=== PATIENT | female | born 1970 | race American Indian/Alaskan Native ===

== ENCOUNTER 2018-10-12 10:28 | Inpatient (IN) | payer OTHER ==
[2018-10-07 11:02] LABS: Hematocrit 37.8 % (30.3-42.9); Mean Corpuscular HGB Conc 32 % (30-34); Mean Corpuscular Volume 71 fl (79-97); Platelet Count 442 K/mm3 (140-440); Red Blood Count 5.35 M/mm3 (3.65-5.03); Red Cell Distribution Width 19.1 % (13.2-15.2)
[2018-10-07 11:22] LABS: BUN/Creatinine Ratio 10; Blood Urea Nitrogen 9 mg/dL (7-17); Calcium 8.8 mg/dL (8.4-10.2); Hemolysis Index 3
--- NOTE | 2018-10-07 11:24 | Anesthesia Consultation ---
Anesthesia Consult and Med Hx Date of service: 10/07/18 - Airway Anesthetic Teeth Evaluation: Poor (loose top incisors ) ROM Head & Neck: Adequate Mental/Hyoid Distance: Adequate Mallampati Class: Class II Intubation Access Assessment: Probably Good - Pulmonary Exam CTA: Yes - Cardiac Exam Cardiac Exam: RRR - Pre-Operative Health Status ASA Pre-Surgery Classification: ASA1 Proposed Anesthetic Plan: General - Pulmonary Hx Smoking: No Hx Asthma: No Hx Respiratory Symptoms: No Hx Sleep Apnea: No - Cardiovascular System Hx Hypertension: No Hx Heart Attack/AMI: No Hx Percutaneous Transluminal Coronary Angioplasty (PTCA): No Hx Cardia Arrhythmia: No - Central Nervous System Hx Seizures: No CVA: No - Gastrointestinal Hx Gastroesophageal Reflux Disease: No - Endocrine Hx Renal Disease: No Hx Liver Disease: No Hx Insulin Dependent Diabetes: No Hx Non-Insulin Dependent Diabetes: No Hx Thyroid Disease: No - Hematic Hx Anemia: Yes (remote transfusion hx) - Other Systems Hx Alcohol Use: Yes (Occas) Hx Obesity: No - Additional Comments Anesthesia Medical History Comments: Scheduled for robotic hysterectomy for fibroids/heavy menstral bleeding. No hx anesthetic complications. Consented for preop TAP block.
[2018-10-07 12:03] LABS: Basophils % (Manual) 0 % (0.0-1.8); Eosinophils % (Manual) 0 % (0.0-4.3); Total Cells Counted 100
[2018-10-07 12:04] LABS: Anisocytosis 1+; Hypochromasia 1+
--- NOTE | 2018-10-12 08:56 | History and Physical Report ---
History of Present Illness Date of examination: 10/12/18 History of present illness: This is a 48 years old female who presents with menstrual disorder. The symptoms began 2 months ago. She complains of irregular menses, heavy bleeding, dysmenorrhea, clotting and cramping, but denies mid-cycle spotting, lack of menses, history of ovarian cysts, history of thyroid disease, history of fibroids, history of PCOS, history of bleeding disorder, lightheadedness and fatigue. Menstrual flow lasts > 7 days. Patient reports that she uses OCP's. Patient's work up has included hysterosonogram which revealed leiomyomas. P melita's symptoms when present disrupts her normal daily activities Patient desires definitive treatment Vital Signs: Patient Profile: 48 Years Old Female Height: 69 inches (175.26 cm) Weight: 179 pounds (81.36 kg) BMI: 26.43 BSA: 1.97 Past History : 2 Term Births: 0 Premature Births: 0 Living Children: 0 Para: 0 Mult. Births: 0 Prev : 0 Aborta: 2 Elect. Ab: 1 Spont. 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 had a metal plate that cause bowel issues, 2006 Stacie n Y Breast Augmentation: 2014 abominoplasty 2014 Cataract Extraction Crosslinking eye surgery (05/2018) for keratoconus Abnormal PAP: positive Uterine Anomaly: positive fibroids Infection History HIV Risk Eval: no Personal hx. of genital herpes: yes Hx of STD: HSV Current Allergies (reviewed today): No known allergies Past Medical History: Keratoconus Fibroids Past Surgical History: LEEP Cholecystectomy 1996 Gastric Bypass: used sleve. had a metal plate that cause bowel issues, 2006 Stacie n Y Breast Augmentation: 2014 abominoplasty 2014 Cataract Extraction Crosslinking eye surgery (05/2018) for keratoconus Family History Summary: Mother (biol.) - Has Family History of Hypertension - father - Entered On: 04/01/2017 Social History: Patient is single Smoking History: Patient has never smoked. Risk Factors: Smoked Tobacco Use: Never smoker Smokeless Tobacco Use: Never Passive smoke exposure: no Drug use: no HIV high-risk behavior: no Alcohol use: yes Exercise: yes Seatbelt use: 100 % Review of Systems General Denies fever, chills, sweats, anorexia, fatigue, weakness, malaise, weight loss and sleep disorder. Complains of menorrhagia, pelvic pain and painful periods. Denies vaginal discharge, incontinence, dysuria, hematuria, urinary frequency, amenorrhea, abnormal vaginal bleeding, genital sores, decreased libido, painful sex, urinary urgency, hot flashes, vaginal dryness, vaginal itching and vaginal odor. CV Denies chest pains, palpitations, syncope, dyspnea on exertion, orthopnea, PND and peripheral edema. Resp Denies cough, dyspnea at rest, excessive sputum, hemoptysis, wheezing and pleurisy. GI Denies nausea, vomiting, diarrhea, constipation, change in bowel habits, abdominal pain, melena, hematochezia, jaundice, gas/bloating, indigestion/heartburn, dysphagia and odynophagia. Breast Denies left breast lump, right breast lump, nipple discharge, bloody discharge from nipple, breast pain, abnormal mammogram and breast enlargement. Psych Denies depression, anxiety, irritability and mood swings. Past History Past Medical History: other (See HPI) Past Surgical History: Other (See HPI) Social history: single, full code (See HPI) Family history: hypertension, other (See HPI) Medications and Allergies Allergies Allergy/AdvReac Type Severity Reaction Status Date / Time No Known Allergies Allergy Unverified 10/07/18 08:28 Home Medications Medication Instructions Recorded Confirmed Last Taken Type No Known Home Medications [No 10/07/18 10/07/18 Unknown History Reported Home Medications] Active Meds: Active Medications Celecoxib (Celebrex) 200 mg PO PREOP NR Stop: 10/12/18 23:00 Fentanyl (Sublimaze) 100 mcg IV ONCE PRN PRN Reason: Sedation for TAP block Gabapentin (Neurontin) 300 mg PO PREOP NR Stop: 10/12/18 23:00 Lactated Ringer's (Lactated Ringers) 1,000 mls @ 100 mls/hr IV DIRECT DIONICIO Midazolam HCl (Versed) 2 mg IV PREOP NR Stop: 10/12/18 23:00 Review of Systems Constitutional: other (See HPI) Exam - Physical Exam Narrative exam: HEENT: normocephalic, no lesions or deformities Skin no ulcers, xanthomas Chest: respiratory effort normal, clear to auscultation Breasts: no masses or nipple discharge CV: regular, normal S1-S2, no murmur, no rub, no gallop Abdomen: normal bowel sounds, soft, nontender, no HSM .Tatoo(s) are present abdominoplasty scar Musculoskeletal: grossly normal ROM in joints, no joint tenderness or muscle weakness Neuro: no gross anomalities Extremities: normal alignment, no joint enlargement, crepitus, masses or tenderness; normal tone and strength 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 Questions answered. Discussed with patient various medical, surgical and radiological therapies common for treatment including myomectomy hysterectomy and uterine artery embolization Patient desires definitive treatment Patient desires hysterectomy Discussed risks and benefits of laparotomy, laparoscopy, vaginal and robotic assisted approaches for hysterectomies Patient desires robotic assisted total hysterectomy. Patient desires robotic assisted total hysterectomy. Consent reviewed and signed . The risks and alternatives for this surgery were reviewed with the patient. Discuss the risks of the surgery including infection, bleeding possibly heavy enough to require a blood transfusion, possible damage to bowel, bladder or ureter. Patient understand that this surgery with make her sterile.Patient understands if her ovaries are removed she will become menopausal. Also if unable to complete robitcally a laparotomy maybe required. Patient advised the small risks of spreading of malignancy if morcellator is used during the surgery patient understands and approve of use if necessary (2) Menometrorrhagia Status: Acute Plan to address problem: Probably secondary to # 1 (3) Keratoconus of both eyes Status: Chronic (4) Status post gastric bypass for obesity Status: Chronic
[~2018-10-12 10:28] MED LIST: LACTATED RINGERS 1,000 ML IV SCH; NEURONTIN PO NR; VERSED IV NR
[2018-10-12] MEDS ORDERED: SUBLIMAZE ONE (10:48)
[2018-10-12] MEDS ORDERED: DIPRIVAN 10 MG/ML IV ONE (10:48)
[2018-10-12] MEDS ORDERED: ANCEF/STERILE WATER 2 GM/20 ML 2 GM/20 ML SYRINGE IV NR (11:00)
[2018-10-12] MEDS ORDERED: MARCAINE 0.25% INFILTRATI ONE (11:45)
[2018-10-12] MEDS ORDERED: DECADRON ONE (11:45)
[2018-10-12] MEDS: SUBLIMAZE IV PRN ×2 (11:53→12:02)
[2018-10-12] MEDS ORDERED: NEOSPORIN GU IR ONE ×2 (11:58→14:04)
[2018-10-12] MEDS ORDERED: METHYLENE BLUE ONE (11:58)
[2018-10-12] MEDS ORDERED: DILAUDID IV PRN (12:18)
--- NOTE | 2018-10-12 12:18 | Anesthesia Day of Surgery ---
Anesthesia Day of Surgery - Day of Surgery Patient Examined: Yes Patient H&P Reviewed: Yes Patient is NPO: Yes
[2018-10-12] MEDS ORDERED: NACL 0.9% IR ONE ×2 (14:03→14:04)
--- NOTE | 2018-10-12 15:16 | Event Note ---
Date: 10/12/18 Intraoperative consult called by Dr. Jones to evaluate bleeding from liver at the start of a robotic hysterectomy. A small liver laceration was noted after insertion of the 12 mm xyphoid trocar. Pt has hx of multiple abdominal surgeries in the past. Upon evaluation there was no active bleeding at the site. The site was irrigated with saline and observed. No active bleeding seen. Partial thickness <2 cm tear in the parenchyma. One piece of surgical was placed over the area. Upon completion of the hysterectomy, I reevaluated the liver. The piece of surgical was intact and there was no bleeding from the site. The surgicel was left in place. The patient was in stable condition during the entire case per anesthesia.
--- NOTE | 2018-10-12 15:24 | Operative Report ---
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 Normal tubes and ovaries bilaterally and uterus approximately 8 weeks size. Specimen(s): Uterus with cervix and bilateral fallopian tubes Procedure: Patient was brought to the operating room where general anesthesia was induced without difficulty. Patient was placed in the dorsal lithotomy position. Prepped and draped in the usual sterile manner for robotic procedure. Galarza catheter was placed without difficulty. Speculum was placed in the vagina. A large V-Care Uterine manipulator was placed without difficulty. Attention was now switched to the patient's abdomen. A vertical supra-umbilicus incision was made with a scalpel. A 10-12 trocar was placed in this incision under direct visualization. After starting insufflation the laceration of the liver could be seen. There was no active bleeding. At this time call was placed out to managed security sales consultant surgeon. The patient pelvic findings were noted as above. It was determined that the patient was a candidate for robotic procedure. On both sides the umbilical incision at about 8 cm, incisions were made for robotic trocar. Each robotic trocar was placed under direct visualization with no evidence of internal organ damage. A assistant producer port was placed 2 fingerbreadths above the right iliac crest. At this time Dr. Govea had arrived. She scrubbed in and evaluate the liver laceration in place Surgicel along the laceration which at this time still without active bleeding. At this time the patient was placed in extreme Trendelenburg. The da Gustavo robot was then docked on the patient's left side. The trocars connected to the robot appropriately. At this time I took my place under the robotic operating griffiths. Starting on the patient's right side the mesosalpinx of the tube were cauterized for mild distal to proximal tube. Bipolar cautery was placed across the proximal portion of the fallopian tube. This area was cauterized and cut the fallopian tube was then removed from the large assistant food service director port. Utero-ovarian complex was cauterized and cut. This was followed by cauterizing and cutting the right fallopian tube and right round ligament. The broad ligament was then opened. The bladder flap was formed anteriorly. The posterior broad ligament was then excised. The uterine vessels were skeletonized. The ureter was clearly seen out of the operative field. The bladder was pushed away from the anterior uterus. Attention was then switched to the patient's left side. The same procedure was repeated on the left side with perform the salpingectomy followed by isolating the uterine vessels cauterized and cutting and completing the bladder flap from the left side. At this time the uterus was appearing very cyanotic. After inspecting the bladder flap insured no evidence of bladder injury, the colpotomy was then started. Incision started at 6:00 until the V-Care could be seen. This incision was extended from 6:00 to 9:00. Then from 6:00 to 3:00. Then from 9:00 to 12:00. This incision was extended from 3:00 to 12:00. At this time colpotomy was complete with no evidence of adjacent organ damage. The assistant producer remove the uterus from through the colpotomy site. The vaginal cuff was irrigated and cauterized and found to be hemostatic. The cuff was closed with roboticly using 0 V- Lock suture. This closure was hemostatic after irrigation and Bovie. All pedicles were inspected and found to be hemostatic. The ureters were identified bilaterally and found to be functioning normal. The patient had clear urine in the Galarza catheter with no evidence of mixture with blood. Judy was placed on the cuff and pedicles for postoperative hemostasis . At this time placed the laparoscope through the 5 mm lower abdominal port which showed no active bleeding at the liver laceration site number Fabriciol was dry. Dr. Govea return to visualize this part of the surgery and agreed no further intervention was needed All instruments were then removed. The large trocar sites were closed in layers and 4-0 Vicryl. The smaller incisions were closed subcuticularly with 4-0 Vicryl. The patient tolerated procedure well. She was awakened in the operating room and accompanied to the recovery room in good condition.
[2018-10-12] MEDS ORDERED: D5LR 1,000 ML IV ONE (15:59)
[2018-10-12] MEDS ORDERED: ZOFRAN IV PRN (16:45)
[2018-10-12] MEDS ORDERED: MILK OF MAGNESIA PO PRN (16:45)
[2018-10-12] MEDS: TORADOL IV SCH ×2 (17:06→23:44)
[2018-10-12] MEDS: ANCEF/NS 1 GM/50 ML 1 GM/50 ML BAG IV SCH ×2 (17:36→23:49)
[2018-10-12] MEDS: NORCO 5/325 PO PRN (18:03)
--- NOTE | 2018-10-12 18:15 | Event Note ---
Date: 10/12/18 Day of surgery. Discuss operative findings including the liver laceration with patient and questions answered. Patient without fever. Abdomen is soft without any abnormal distention appropriately tender. Will ambulate in halls this evening. Good urine output. We will continue routine postoperative care. We do serial hematocrit and hemoglobin.
[2018-10-12 18:49] LABS: Hematocrit 36.1 % (30.3-42.9); Hemoglobin 11.4 gm/dl (10.1-14.3)
[2018-10-12] MEDS ORDERED: MORPHINE IV ONE (19:14)
[2018-10-12 23:15] LABS: Hematocrit 32.3 % (30.3-42.9); Hemoglobin 10.5 gm/dl (10.1-14.3)
[2018-10-12] MEDS: D5LR 1,000 ML IV SCH (23:43)
[2018-10-12] MEDS: COLACE PO SCH (23:49)
[2018-10-13] MEDS: NORCO 5/325 PO PRN ×2 (02:10→14:14)
[2018-10-13] MEDS: TORADOL IV SCH (05:43)
[2018-10-13] MEDS: D5LR 1,000 ML IV SCH (06:35)
[2018-10-13 06:54] LABS: Hematocrit 30.8 % (30.3-42.9)
--- NOTE | 2018-10-13 09:04 | Event Note ---
Date: 10/13/18 Called patient she says she feels "great" denies any pain or orthostatic symptoms will repeat H/H.
[2018-10-13 11:33] LABS: Hematocrit 30.6 % (30.3-42.9); Hemoglobin 9.9 gm/dl (10.1-14.3)
--- NOTE | 2018-10-13 12:39 | Discharge Summary ---
Providers - Providers Date of Admission: 10/12/18 15:02 Date of discharge: 10/13/18 Attending physician: JOE JACOME Intraoperative consult surgeon Primary care physician: COIN PURSE FRAMER Hospitalization Reason for admission: symptomatic leiomyoma Condition: Good Procedures: Robotic-assisted total hysterectomy with bilateral salpingectomy and lysis of adhesions Hospital course: Patient was admitted and underwent above procedure in the intraoperative liver laceration. Patient without any active bleeding from the laceration. Her post operative course was benign she was afebrile throughout. Patient postoperative day 1 hematocrit was in an acceptable range and stable after serial hematocrits. Patient had no orthostatic symptoms. Patient was tolerating regular diet and voiding without difficulty at time of discharge. Patient incision was healing well without evidence of infection. Disposition: DC-01 TO HOME OR SELFCARE - Discharge Diagnoses (1) Intramural leiomyoma of uterus Status: Acute (2) Menometrorrhagia Status: Acute (3) Keratoconus of both eyes Status: Chronic (4) Status post gastric bypass for obesity Status: Chronic (5) Minor laceration of liver Status: Acute Core Measure Documentation - Palliative Care Palliative Care/ Comfort Measures: Not Applicable - Core Measures Any of the following diagnoses?: none Exam - Constitutional Vitals: Temp Pulse Resp BP Pulse Ox 97.9 F 71 20 136/79 100 10/13/18 07:24 10/13/18 07:24 10/13/18 07:24 10/13/18 07:24 10/13/18 07:24 General appearance: Present: no acute distress, well-nourished - Respiratory Respiratory effort: normal - Cardiovascular Rhythm: regular - Extremities Extremities: no ischemia, No edema - Abdominal General gastrointestinal: Present: soft, tender (appropriate postop), normal bowel sounds Female genitourinary: Present: deferred - Rectal Rectal Exam: deferred - Integumentary Integumentary: Present: clear, warm, dry - Musculoskeletal Musculoskeletal: strength equal bilaterally - Psychiatric Psychiatric: appropriate mood/affect, intact judgment & insight Plan Activity: advance as tolerated Diet: regular Wound: open to air Additional Instructions: Patient instructed no heavy lifting for 4 weeks. No intercourse for 8 weeks. Call office for fever, chills, nausea, vomiting or pain not controlled by pain medications. Ambulation is encouraged. Patient's call for heavy vaginal bleeding. Patient instructed to keep her scheduled post operative office appointment. Follow up with: PRIMARY CARE, [Primary Care Provider] - 7 Days Prescriptions: Ibuprofen [Motrin 800 MG tab] 800 mg PO Q6H PRN #30 tablet PRN Reason: Pain oxyCODONE /ACETAMINOPHEN [Percocet 5/325 mg] 1 - 2 tab PO Q4H PRN #30 tablet PRN Reason: Pain, Moderate
[2018-10-13 14:03] VITALS: BP 145/83
[2018-10-13] MEDS: COLACE PO SCH (14:14)
== END 2018-10-13 15:45 | disposition home or self-care (01) | DRG 742 ==
LOC: OR 10:28 → OB 15:02
PROVIDERS: ADMIT Obstetrics & Gynecology; ATTEND Obstetrics & Gynecology
PROC: 0UT94ZZ Resection of Uterus, Percutaneous Endoscopic Approach (ICD-10-PCS; principal; 2018-10-12)
PROC: 0UT74ZZ Resection of Bilateral Fallopian Tubes, Percutaneous Endoscopic Approach (ICD-10-PCS; 2018-10-12)
PROC: 8E0W4CZ Robotic Assisted Procedure of Trunk Region, Percutaneous Endoscopic Approach (ICD-10-PCS; 2018-10-12)
DX: D25.1 Intramural leiomyoma of uterus (principal); N99.72 Accidental puncture and laceration of a genitourinary system organ or structure during other procedure; S36.114A Minor laceration of liver, initial encounter; K91.81 Other intraoperative complications of digestive system; N73.6 Female pelvic peritoneal adhesions (postinfective); N92.1 Excessive and frequent menstruation with irregular cycle; H18.603 Keratoconus, unspecified, bilateral; N92.0 Excessive and frequent menstruation with regular cycle; Z72.89 Other problems related to lifestyle; Z98.84 Bariatric surgery status; Z98.890 Other specified postprocedural states; Z98.49 Cataract extraction status, unspecified eye; Z90.49 Acquired absence of other specified parts of digestive tract; Z82.49 Family history of ischemic heart disease and other diseases of the circulatory system; Y83.8 Other surgical procedures as the cause of abnormal reaction of the patient, or of later complication, without mention of misadventure at the time of the procedure; Y92.238 Other place in hospital as the place of occurrence of the external cause
CPT/HCPCS: 36415; 64450; 80048; 84703; 85007; 85014; 85018; 85025; 86850; 86900; 86901; 88302; 88307; G0378; A4217; J0690; J1100; J1885; J2250; J2270; J2704; J3010; J7120; J7121; Q9968